=== PATIENT | male | born 1980 | race Caucasian/White ===

== ENCOUNTER 2017-01-18 16:55 | Emergency (ER) | payer SELFPAY ==
[2017-01-18 17:06] VITALS: BMI 34.2
[2017-01-18] MEDS ORDERED: ZOFRAN INJ 4 MG VIAL IVP ONE (17:08)
[2017-01-18] MEDS ORDERED: MORPHINE SULFATE INJ 4 MG IVP ONE (17:08)
[2017-01-18] MEDS ORDERED: MORPHINE SULFATE INJ 4 MG ONE (17:14)
[2017-01-18] MEDS ORDERED: ZOFRAN INJ 4 MG VIAL ONE (17:14)
--- NOTE | 2017-01-18 17:14 | DR.CP ---
HPI - Time Seen Time seen: 17:00 - PCP Primary Care Physician: ANEL - HPI Comment HPI Comment: Intermittent substernal cp radiating to the left chest for the past 7-10 days which acutely worsened to a 7/10 today while he was arguing with his ; he became sob with radiation into the neck and threw up x [address]; pain is now 5/10 and there is no radiation. He had a similar event 8 months ago in [place] where he was admitted and had a negative work up that did not (reportedly) include a stress test or cath. He was told his bp was high , but he did not need medication. He has asthma but no other majory medical problems; he is under a lot of stress. - Complaint Chief Complaint:: PATIENT STATED THAT HE STATED HAVING SEVERE CHEST THAT STARTED ABOUT 30-45 MINS AGO. HE STATED THAT HE HAS HAD CHEST PAIN ABOUT 2 WEEKS AGO THAT HE HAS BEEN UNDER STRESS. BUT TODAY IT WENT UP INTO HIS NECK AND CAUSED HIM TO BE SOB AND ALSO N/V - Source History Provided: Patient - Mode of Arrival Mode of Arrival: Ambulatory - Timing Onset of Chief Complaint: 01/18/17 - Location Chest Pain Radiation Location: Neck - Associated Signs and Symptoms Associated Signs and Symptoms: Shortness of Breath, Nausea/Vomiting PMH - PMH Past Medical History: Yes Past Medical History: Angina, Asthma, COPD, Hypertension Past Surgical History: Yes Surgical History: Ortho Surgery - Family History History of Family Medical Conditions: Yes Family Medical History: Diabetes Mellitus, Cancer, CT, Hypertension - Social History Does patient currently use any type of tobacco product: Yes Have you used tobacco products in the last 12 months: Yes Type of Tobacco Use: Cigarettes Does any household member use tobacco: No Alcohol Use: None Do you use any recreational Drugs:: No Lives With: Family Lives Where: Home - infectious screening In the last 2 months have you had wt loss of >10#?: NO Have you had fever, night sweats or hemotysis?: No Have you traveled outside the country in the last 6 months?: No Isolation: Standard ROS - Review of Systems Constitutional: No Symptoms Reported Eyes: No Symptoms Reported ENTM: No Symptoms Reported Respiratoy: Short of Breath Cardiovascular: Chest Pain Gastrointestinal/Abdominal: See HPI Neurological: No Symptoms Reported Musculoskeletal: No Symptoms Reported Integumentary: No Symptoms Reported Psychiatric: Anxiety (stress) PE - Vitals Vitals: Temperature 97.9 F Pulse Rate [Right Brachial] 67 Pulse Rate 90 Respiratory Rate 20 Blood Pressure [Right Arm] 122/67 Blood Pressure 123/76 O2 Sat by Pulse Oximetry 98 - General Limitations: No Limitations General Appearance: Alert, In No Apparent Distress - Head Head Exam: Normal Inspection - Eyes Eye exam: Normal Appearance - ENT ENT Exam: Normal Exam - Respiratory Respiratory Exam: Bilateral Wheezing (diffusely, scattered throughout) - Cardiovascular Cardiovascular Exam: Regular Rate, Normal Rhythm Edema: Normal - Abdominal Exam Abdominal Exam: Normal Inspection, Normal Bowel Sounds - Extremities Extremities Exam: Normal Inspection - Neurologic Neurological Exam: Alert, Oriented X3 - Psychiatric Psychiatric Exam: Normal Affect, Normal Mood - Skin Skin Exam: Warm Course - Reevaluation 1st: Improved (cp but worsening sob w/wheezing; now reports he's been out of combivent x 2-3 days) 2nd: Unchanged (stil w/substernal "pressure") ROR - Labs Reviewed Result Diagrams: 01/18/17 17:10 01/18/17 17:10 Laboratory: WBC 12.5 X10^3/uL (3.6-10.0) H 01/18/17 17:10 RBC 5.20 X10^6/uL (4.7-6.0) 01/18/17 17:10 Hgb 15.6 g/dL (13.5-18.0) 01/18/17 17:10 Hct 45.6 % (42.0-54.0) 01/18/17 17:10 MCV 87.6 fL (80.0-100.0) 01/18/17 17:10 MCH 29.9 pg (27.0-34.0) 01/18/17 17:10 MCHC 34.1 g/dL (33.0-35.0) 01/18/17 17:10 RDW 13.4 % (11.6-16.5) 01/18/17 17:10 Plt Count 290 X10^3/uL (150.0-450.0) 01/18/17 17:10 MPV 8.6 fL (7.4-11.0) 01/18/17 17:10 Neut % 79.2 % (42.0-75.0) H 01/18/17 17:10 Lymph % 11.2 % (21.0-51.0) L 01/18/17 17:10 Lawrence % 7.6 % (0.0-13.0) 01/18/17 17:10 Eos % 1.4 % (0.9-2.9) 01/18/17 17:10 Baso % 0.6 % (0.2-1.0) 01/18/17 17:10 Neut # 9.9 x10^3/uL (2.2-4.8) H 01/18/17 17:10 Lymph # 1.4 X10^3/uL (1.3-2.9) 01/18/17 17:10 Lawrence # 1.0 x10^3/uL (0.3-0.8) H 01/18/17 17:10 Eos # 0.2 x10^3/uL (0.0-0.2) 01/18/17 17:10 Baso # 0.1 X10^3/uL (0.0-0.1) 01/18/17 17:10 Absolute Nucleated RBC 0.0 /100WBC 01/18/17 17:10 D-Dimer 157 ng/mL (0-400) 01/18/17 17:10 Sodium 138 mmol/L (136-145) 01/18/17 17:10 Corrected Sodium 140 mmol/L (136-145) 01/18/17 17:10 Potassium 4.4 mmol/L (3.5-5.1) 01/18/17 17:10 Chloride 103 mmol/L (98-107) 01/18/17 17:10 Carbon Dioxide 22.2 mmol/L (21-32) 01/18/17 17:10 BUN 13 mg/dL (7-18) 01/18/17 17:10 Creatinine 1.22 mg/dL (0.70-1.30) 01/18/17 17:10 Est GFR (MDRD) Af Amer > 60 (>60) 01/18/17 17:10 Est GFR (MDRD) Non-Af > 60 (>60) 01/18/17 17:10 Glucose 185 mg/dL (65-99) H 01/18/17 17:10 Calcium 8.9 mg/dL (8.5-10.1) 01/18/17 17:10 Corrected Calcium TNP 01/18/17 17:10 Total Bilirubin 0.70 mg/dL (0.2-1.0) 01/18/17 17:10 AST 142 Units/L (15-37) H 01/18/17 17:10 ALT 171 Units/L (12-78) H 01/18/17 17:10 Alkaline Phosphatase 64 Units/L (46-116) 01/18/17 17:10 Creatine Kinase 388 Units/L (39-308) H 01/18/17 17:10 CK-MB (CK-2) 3.2 ng/mL (0-4.0) 01/18/17 17:10 CK/CKMB % Calc 0.8 % (<4) 01/18/17 17:10 Troponin I < 0.02 ng/mL (0-1.5) 01/18/17 17:10 Total Protein 7.3 g/dL (6.4-8.2) 01/18/17 17:10 Albumin 3.9 g/dL (3.4-5.0) 01/18/17 17:10 Globulin 3.4 g/dL (2.5-4.5) 01/18/17 17:10 Albumin/Globulin Ratio 1.1 Ratio (1.1-2.1) 01/18/17 17:10 - XRAY XRAY Interpreted by: Radiologist (cxr negative) - Discharge Plan Condition: Stable - Follow ups/Referrals Follow ups/Referrals: NFD,None [Primary Care Provider] - 3 days - Instructions
[2017-01-18 17:20] LABS: BASOPHILS # (AUTO) 0.1 X10^3/uL (0.0-0.1); BASOPHILS % (AUTO) 0.6 % (0.2-1.0); EOSINOPHILS # (AUTO) 0.2 x10^3/uL (0.0-0.2); EOSINOPHILS % (AUTO) 1.4 % (0.9-2.9); HEMATOCRIT 45.6 % (42.0-54.0); HEMOGLOBIN 15.6 g/dL (13.5-18.0); LYMPHOCYTES # (AUTO) 1.4 X10^3/uL (1.3-2.9); LYMPHOCYTES % (AUTO) 11.2 % (21.0-51.0); MEAN CORPUSCULAR HEMOGLOBIN 29.9 pg (27.0-34.0); MEAN CORPUSCULAR HGB CONC 34.1 g/dL (33.0-35.0); MEAN CORPUSCULAR VOLUME 87.6 fL (80.0-100.0); MEAN PLATELET VOLUME 8.6 fL (7.4-11.0); MONOCYTES % (AUTO) 7.6 % (0.0-13.0); NEUTROPHILS # (AUTO) 9.9 x10^3/uL (2.2-4.8); NEUTROPHILS % (AUTO) 79.2 % (42.0-75.0); PLATELET COUNT 290 X10^3/uL (150.0-450.0); RED CELL DISTRIBUTION WIDTH 13.4 % (11.6-16.5); WHITE BLOOD COUNT 12.5 X10^3/uL (3.6-10.0)
[2017-01-18 17:43] LABS: BLOOD UREA NITROGEN 13 mg/dL (7-18); CALCIUM 8.9 mg/dL (8.5-10.1); CARBON DIOXIDE 22.2 mmol/L (21-32); CHLORIDE 103 mmol/L (98-107); COR NA(FOR HYPERGLY) 140 mmol/L (136-145); CREATININE 1.22 mg/dL (0.70-1.30); GLUCOSE 185 mg/dL (65-99); SODIUM 138 mmol/L (136-145); TROPONIN I < 0.02 ng/mL (0-1.5); eGFR BLACK RACES > 60 (>60); eGFR NON BLACK RACES > 60 (>60)
[2017-01-18 17:47] LABS: ALANINE AMINOTRANSFERASE 171 Units/L (12-78); ALBUMIN 3.9 g/dL (3.4-5.0); ALKALINE PHOSPHATASE 64 Units/L (46-116); ASPARTATE AMINO TRANSFERASE 142 Units/L (15-37); CKMB % 0.8 % (<4); CREATINE KINASE 388 Units/L (39-308); CREATINE KINASE MB 3.2 ng/mL (0-4.0); TOTAL PROTEIN 7.3 g/dL (6.4-8.2)
--- NOTE | 2017-01-18 17:55 | RAD ---
HISTORY: Shortness of breath Study: AP chest obtained 5:34 p.m. Comparison: Findings: The trachea is midline . There is no widening or shift of mediastinum. The cardiac silhouette appear s within normal limits. The costophrenic angles are sharp and both diaphragms are adequately [place]. The lungs are adequately aerated. Osseous structures are within normal limits for the patient's age There is no evidence of active inflammatory disease. IMPRESSION: 1. Heart normal size lungs clear Reported By:
[2017-01-18] MEDS ORDERED: ATROVENT NEB TX 0.02% NEB ONE (18:05)
[2017-01-18] MEDS ORDERED: ACCUNEB 1.25 MG NEBULE NEB ONE (18:05)
[2017-01-18] MEDS ORDERED: DUONEB 0.5 MG/3 MG ONE (18:14)
[2017-01-18] MEDS ORDERED: DUONEB 0.5 MG/3 MG NEB ONE (18:14)
[2017-01-18 18:18] LABS: D DIMER 157 ng/mL (0-400)
[2017-01-18 18:32] VITALS: BP 122/67
== END 2017-01-18 20:49 | disposition left against medical advice (07) ==
LOC: ER 17:00
DX: R07.89 Other chest pain (principal); R06.02 Shortness of breath; R11.2 Nausea with vomiting, unspecified
CPT/HCPCS: 36415; 71010; 80053; 82550; 82553; 84484; 85025; 85378; 93005; 93010; 94640; 96365; 96374; 96375; 99282; 99283; A4222; J2270; J2405; J7620

== ENCOUNTER → 2017-12-14 | Outpatient (CLI) | payer MEDICAID ==
[2017-11-05 14:38] VITALS: BP 112/70
[2017-12-14 13:05] LABS: BASOPHILS # (AUTO) 0.1 X10^3/uL (0.0-0.1); BASOPHILS % (AUTO) 1.2 % (0.2-1.0); EOSINOPHILS # (AUTO) 0.3 x10^3/uL (0.0-0.2); EOSINOPHILS % (AUTO) 2.8 % (0.9-2.9); HEMATOCRIT 46.5 % (42.0-54.0); HEMOGLOBIN 16.3 g/dL (13.5-18.0); LYMPHOCYTES # (AUTO) 2.5 X10^3/uL (1.3-2.9); MEAN CORPUSCULAR HEMOGLOBIN 30.4 pg (27.0-34.0); MEAN CORPUSCULAR VOLUME 86.7 fL (80.0-100.0); MEAN PLATELET VOLUME 8.4 fL (7.4-11.0); MONOCYTES # (AUTO) 0.6 x10^3/uL (0.3-0.8); MONOCYTES % (AUTO) 6.3 % (0.0-13.0); NEUTROPHILS # (AUTO) 6.1 x10^3/uL (2.2-4.8); NEUTROPHILS % (AUTO) 63.7 % (42.0-75.0); PLATELET COUNT 305 X10^3/uL (150.0-450.0); RED BLOOD COUNT 5.36 X10^6/uL (4.7-6.0); RED CELL DISTRIBUTION WIDTH 13.5 % (11.6-16.5); WHITE BLOOD COUNT 9.6 X10^3/uL (3.6-10.0)
[2017-12-14 13:22] LABS: ALANINE AMINOTRANSFERASE 126 Units/L (12-78); ALKALINE PHOSPHATASE 77 Units/L (46-116); ASPARTATE AMINO TRANSFERASE 35 Units/L (15-37); BLOOD UREA NITROGEN 7 mg/dL (7-18); CHLORIDE 104 mmol/L (98-107); CHOL/HDL RATIO 3.8 (0.0-5.0); CHOLESTEROL 163 mg/dL (0-200); COR NA(FOR HYPERGLY) 142 mmol/L (136-145); CREATININE 1.01 mg/dL (0.70-1.30); HDL CHOLESTEROL 43 mg/dL (40-60); SODIUM 141 mmol/L (136-145); TRIGLYCERIDES 190 mg/dL (0-150); eGFR BLACK RACES > 60 (>60); eGFR NON BLACK RACES > 60 (>60)
== END ==
LOC: LAB 12:41
PROVIDERS: ATTEND Obstetrics & Gynecology Obstetrics
DX: I10 Essential (primary) hypertension (principal)
CPT/HCPCS: 36415; 80053; 80061; 83525; 85025